=== PATIENT | female | born 1950 | race Caucasian/White ===

== ENCOUNTER → 2016-09-20 | Outpatient (CLI) | payer OTHER ==
[~2016-09-20] MED LIST: LIDOCAINE 1% 30 ML SDV ONE; NA BICARBONATE 50 MEQ/50 ML VIAL ONE
[2016-09-20 09:10] LABS: INR 0.99 (0.83-1.16)
[2016-09-20 11:19] LABS: CSF APPEARANCE CLEAR (CLEAR); CSF COLOR COLORLESS (COLORLESS); CSF SUPERNATANT COLORLESS (COLORLESS); WBC, CSF 2 /mm3 (0-5)
[2016-09-21 13:56] LABS: VDRL CSF Negative (Negative)
[2016-09-23 13:41] LABS: ALBUMIN CSF 25.2 mg/dL (<=27.0); ALBUMIN SERUM 4270 mg/dL; CSF IGG INDEX 0.54 (<=0.85); IGG CSF 3.2 mg/dL (<=8.1); IGG SERUM 1040 mg/dL (767 - 1590); IGG/ALBUMIN CSF 0.13 (<=0.21); IGG/ALBUMIN SERUM 0.24 (<=0.40); INTERPRETATION 0 bands (<4); OLIGOCLONAL BANDING CSF 1 bands; OLIGOCLONAL BANDING SERUM 1 bands; SYNTHESIS RATE 0.79 mg/24 h (<=12)
== END ==
LOC: FIMAGING 08:31
PROC: 009U3ZX Drainage of Spinal Canal, Percutaneous Approach, Diagnostic (ICD-10-PCS; principal; 2016-09-20)
DX: R51 Headache (principal); H46.9 Unspecified optic neuritis; H54.52 Low vision, left eye, normal vision right eye
CPT/HCPCS: 82784-90; 83916-90; 86592-90; 86618-90

== ENCOUNTER → 2016-09-26 | Outpatient (CLI) | payer OTHER | LOC: BMCIMAGING 08:46 | DX: Z12.31 Encounter for screening mammogram for malignant neoplasm of breast (principal) | CPT/HCPCS: G0202 ==

== ENCOUNTER → 2016-11-01 | Outpatient (CLI) | payer OTHER | LOC: BMCIMAGING 09:53 | PROVIDERS: ATTEND Internal Medicine | DX: Z13.820 Encounter for screening for osteoporosis (principal); M85.80 Other specified disorders of bone density and structure, unspecified site ==

== ENCOUNTER 2016-11-29 03:07 | Emergency (ER) | payer OTHER ==
[2016-11-29 03:20] VITALS: TEMP 98.1
--- NOTE | 2016-11-29 03:20 | EDPHY ---
H & P HPI/ROS: HPI CHIEF COMPLAINT: Stress, anxiety, hypertension HISTORY OF PRESENT ILLNESS: This patient very pleasant 65-year-old female she does have significant past medical history for optic neuritis, she is recovering vision in her left eye, she presents emergency room stating that she has been dealing with a lot of stress and anxiety with her elderly mom who is in hospice care who keeps living past what is expected. She also has upset with hospice care for "aggressively feeding her" this been given her great amount of stress and anxiety. She woke up from a nightmare this evening she decided to take her blood pressure which she does regularly and her blood pressure usually runs 130s/80s however was elevated in 170s/100s. Patient tells me that she denies any chest pain or shortness of breath denies headache. She does feel anxious and feels stress. She denies any new visual disturbance. She denies any history of hypertension or taking blood pressure medication. Past Medical History: Optic neuritis Past Surgical History: No recent surgical history Social History: Denies daily use of drugs alcohol tobacco products Family History: Noncontributory ROS REVIEW OF SYSTEMS: A comprehensive 10 point review of systems is otherwise negative aside from elements mentioned in the history of present illness. Exam Constitutional appears tearful, anxious, triage nursing summary reviewed, vital signs reviewed, awake/alert. Eyes normal conjunctivae and sclera, EOMI, PERRLA. HENT normal inspection, atraumatic, moist mucus membranes, no epistaxis, neck supple/ no meningismus, no raccoon eyes. Respiratory clear to auscultation bilaterally, normal breath sounds, no respiratory distress, no wheezing. Cardiovascular rate normal, regular rhythm, no murmur, no edema, distal pulses normal. Gastrointestinal soft, non-tender, no rebound, no guarding, normal bowel sounds, no distension, no pulsatile mass. Genitourinary no CVA tenderness. Musculoskeletal no midline vertebral tenderness, full range of motion, no calf swelling, no tenderness of extremities, no meningismus, good pulses, neurovascularly intact. Skin pink, warm, & dry, no rash, skin atraumatic. Neurologic awake, alert and oriented x 3, AAOx3, moves all 4 extremities equally, motor intact, sensory intact, CN II-XII intact, normal cerebellar, normal vision, normal speech. Psychiatric flat affect, tearful Heme/Lymph/Immune no lymphadenopathy. Differential Diagnosis: Includes but is not limited to in a particular order, acute anxiety, stress response, hypertensive urgency, asymptomatic hypertension Medical Decision Making: Plan for this patient basic blood work, 1 mg p.o. Ativan to see if this relaxes her her brings down her blood pressure. Re-evaluation: 0506AM: Re-evaluation at this time blood pressure is currently 140s over 80s, she is resting comfortably no chest pain or shortness of breath. She is feeling much better after p.o. Ativan. Anxiety greatly improved. Blood work has been reviewed shows no end-organ damage. Recommend monitoring blood pressure closely for the next 2 weeks daily readings. Her also prescribe her limited supply of Ativan for stress and anxiety at home which I think will benefit her. She does understand return emergency room if she develops chest pain shortness of breath or any questions or concerns. Source: Patient Constitutional: Initial Vital Signs Temperature (C) 36.7 C 11/29/16 03:19 Heart Rate 79 11/29/16 03:19 Respiratory Rate 18 11/29/16 03:19 Blood Pressure 179/96 H 11/29/16 03:19 O2 Sat (%) 98 11/29/16 03:19 O2 Delivery Mode Room Air Allergies/Adverse Reactions: erythromycin base Allergy (Intermediate, Verified 09/16/16 14:45) Abdominal Pain Home Medications: Medication Instructions Recorded B12/Levomefolate Calcium/B-6 DAILY 09/16/16 Fish Oil DAILY 09/16/16 Glucosamine DAILY 09/16/16 Aspirin 81mg (*) 11/29/16 LORazepam [Ativan] 1 mg PO BID #10 tablet 11/29/16 Vitamin A & D 11/29/16 Medical Decision Making - Data Points Laboratory Results: Laboratory Results 11/29/16 03:43 11/29/16 03:43 11/29/16 11/29/16 03:43 03:43 WBC 3.12 10^3/uL L 10^3/uL (3.80-9.50) RBC 3.90 10^6/uL L 10^6/uL (4.18-5.33) Hgb 13.2 g/dL g/dL (12.6-16.3) Hct 37.5 % L % (38.0-47.0) MCV 96.2 fL fL (81.5-99.8) MCH 33.8 pg pg (27.9-34.1) MCHC 35.2 g/dL g/dL (32.4-36.7) RDW 13.0 % % (11.5-15.2) Plt Count 222 10^3/uL 10^3/uL (150-400) MPV 9.1 fL fL (8.7-11.7) Neut % (Auto) 53.9 % % (39.3-74.2) Lymph % (Auto) 33.3 % % (15.0-45.0) Donley % (Auto) 9.3 % % (4.5-13.0) Eos % (Auto) 1.9 % % (0.6-7.6) Baso % (Auto) 1.6 % % (0.3-1.7) Nucleat RBC Rel Count 0.0 % % (0.0-0.2) Absolute Neuts (auto) 1.68 10^3/uL L 10^3/uL (1.70-6.50) Absolute Lymphs (auto) 1.04 10^3/uL 10^3/uL (1.00-3.00) Absolute Monos (auto) 0.29 10^3/uL L 10^3/uL (0.30-0.80) Absolute Eos (auto) 0.06 10^3/uL 10^3/uL (0.03-0.40) Absolute Basos (auto) 0.05 10^3/uL 10^3/uL (0.02-0.10) Absolute Nucleated RBC 0.00 10^3/uL 10^3/uL (0-0.01) Immature Gran % 0.0 % % (0.0-1.1) Immature Gran # 0.00 10^3/uL 10^3/uL (0.00-0.10) Sodium 139 mEq/L mEq/L (134-144) Potassium 3.9 mEq/L mEq/L (3.5-5.2) Chloride 106 mEq/L mEq/L (97-110) Carbon Dioxide 23 mEq/l mEq/l (22-31) Anion Gap 10 mEq/L mEq/L (8-16) BUN 10 mg/dL mg/dL (7-23) Creatinine 0.6 mg/dL mg/dL (0.6-1.0) Estimated GFR > 60 Glucose 85 mg/dL mg/dL (70-100) Calcium 9.3 mg/dL mg/dL (8.5-10.4) Medications Given: Discontinued Medications Lorazepam (Ativan) 1 mg PO ONCE ONE Stop: 11/29/16 03:34 Last Admin: 11/29/16 03:43 Dose: 1 mg Departure - Departure Disposition: Home, Routine, Self-Care Clinical Impression: Anxiety Condition: Good Instructions: Anxiety (ED) Additional Instructions: 1. Return emergency room immediately if he develops any further worsening symptoms. 2. I have given you a limited supply of Ativan for acute anxiety. 3. Monitor blood pressure closely over the next 2 weeks. Try to take her blood pressure the same time every day. Record it. Referrals: Lucina Yanez MD [Primary Care Provider] - As per Instructions Prescriptions: LORazepam [Ativan] 1 mg PO BID #10 tablet
[2016-11-29] MEDS ORDERED: LORazepam 1 MG TAB PO ONE (03:33)
[2016-11-29 04:00] LABS: ADD DIFF? NO; ADD MORPH? NO; ADD SCAN? NO; ATYPICAL LYMPHOCYTE FLAG 20 (0-99); FRAGMENT RBC FLAG 0 (0-99); HEMATOCRIT 37.5 % (38.0-47.0); HEMOGLOBIN 13.2 g/dL (12.6-16.3); LEFT SHIFT FLG 0 (0-99); LIPEMIA HEMOLYSIS FLAG 90 (0-99); MEAN CELL HEMOGLOBIN 33.8 pg (27.9-34.1); MEAN CELL HEMOGLOBIN CONCENTR. 35.2 g/dL (32.4-36.7); MEAN CELL VOLUME 96.2 fL (81.5-99.8); MEAN PLATELET VOLUME 9.1 fL (8.7-11.7); PLATELET CLUMPS FLAG 0 (0-99); PLATELET COUNT 222 10^3/uL (150-400)
[2016-11-29 04:08] LABS: ANION GAP 10 mEq/L (8-16); CALCIUM 9.3 mg/dL (8.5-10.4); CARBON DIOXIDE 23 mEq/l (22-31); CHLORIDE 106 mEq/L (97-110); CREATININE 0.6 mg/dL (0.6-1.0); GLOMERULAR FILTRATION RATE > 60; GLUCOSE 85 mg/dL (70-100); POTASSIUM 3.9 mEq/L (3.5-5.2); SODIUM 139 mEq/L (134-144)
[2016-11-29 04:53] VITALS: PULSE 63; O2SAT 96
[2016-11-29 05:16] VITALS: BP 140/97; RESP 15
== END 2016-11-29 05:15 | disposition home or self-care (01) ==
DX: F41.9 Anxiety disorder, unspecified (principal); Z79.82 Long term (current) use of aspirin

== ENCOUNTER → 2017-01-14 | Outpatient (CLI) | payer OTHER | LOC: FCPNEURO 23:18 | PROVIDERS: ATTEND Psychiatry & Neurology Sleep Medicine | DX: G47.33 Obstructive sleep apnea (adult) (pediatric) (principal) ==

== ENCOUNTER → 2017-09-29 | Outpatient (CLI) | payer OTHER | LOC: BMCIMAGING 08:20 | PROVIDERS: ATTEND Internal Medicine | DX: Z12.31 Encounter for screening mammogram for malignant neoplasm of breast (principal) ==

== ENCOUNTER 2018-04-18 03:53 | Emergency (ER) | payer OTHER ==
[2018-04-18 04:00] VITALS: BP 181/91
[2018-04-18] MEDS ORDERED: KETOROLAC 15 MG/1 ML SDV IVP ONE (04:09)
[2018-04-18] MEDS ORDERED: ONDANSETRON 4 MG/2 ML VIAL IVP ONE (04:09)
--- NOTE | 2018-04-18 04:10 | EDPHY ---
H & P Stated Complaint: left hip pain Time Seen by Provider: 04/18/18 04:01 HPI/ROS: Chief Complaint: Left hip pain HPI: 67-year-old woman began having left hip pain yesterday during the course today. Patient states that she moved a heavy potted plant. She also was lifting and moving some furniture for carpet cleaning. As the day went on she developed pain in her left hip. She did not fall. She did not have any traumatic injuries. She is not recall a sudden onset of back pain.. No numbness or weakness. No difficulty urinating. No incontinence of bowel or bladder. She does not have a history of similar pain in the past. She did take some ibuprofen and some Tylenol without significant relief. No fevers or chills. No urinary urgency or frequency. Pain is described in her left posterior hip and buttocks in wrapping around to the front of her left thigh ROS: 10 systems were reviewed and were negative except those elements noted in the HPI. PMH: Optic neuritis Social History: No smoking, no alcohol, no recreational drug use Family History: non-contributory Physical Exam: Gen: Awake, Alert, No Distress HEENT: Nose: no rhinorrhea Eyes: PERRLA, EOMI Mouth: Moist mucosa Neck: Supple, no JVD Chest: nontender, lungs clear to auscultation Heart: S1, S2 normal, no murmur Abd: Soft, non-tender, no guarding Back: no CVA tenderness, no midline tenderness Ext: no edema, non-tender, she has full range of motion of her left hip without any pain or discomfort. Skin: no rash Neuro: CN II-XII intact, Sensation grossly intact, Strength 5/5 in bilateral upper and lower extremities, she is 5 of 5 flexion and extension strength of her proximal and distal muscle groups in bilateral lower extremities. She is normal plantar and dorsiflexion. 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 - Social History Smoking Status: Never smoked Constitutional: Initial Vital Signs Temperature (C) 36.8 C 04/18/18 03:55 Heart Rate 72 04/18/18 03:55 Respiratory Rate 16 04/18/18 03:55 Blood Pressure 181/91 H 04/18/18 03:55 O2 Sat (%) 100 04/18/18 03:55 O2 Delivery Mode Room Air Allergies/Adverse Reactions: erythromycin base Allergy (Intermediate, Verified 04/18/18 03:57) Abdominal Pain Home Medications: Medication Instructions Recorded B12/Levomefolate Calcium/B-6 DAILY 09/16/16 Fish Oil DAILY 09/16/16 Glucosamine DAILY 09/16/16 Aspirin 81mg (*) 11/29/16 LORazepam [Ativan] 1 mg PO BID #10 tablet 11/29/16 Vitamin A & D 11/29/16 Are-2 04/18/18 Astaxanthin 04/18/18 Upper Sorbian Herbs 04/18/18 Hydrocodone/Acetaminophen 1 - 2 each PO Q4-6PRN PRN #10 04/18/18 [Hydrocodon-Acetaminophen 5-325] tablet Medical Decision Making ED Course/Re-evaluation: 67-year-old woman with left sciatic distribution back pain. She is complaining of hip pain but she has no hip tenderness seizures she has full range of motion without any problems. She is completely neurologically intact. Will perform L- spine x-rays, urinalysis and blood work. IV analgesia and reassess. - Data Points Medications Given: Discontinued Medications Ketorolac Tromethamine (Toradol) 15 mg IVP EDNOW ONE Stop: 04/18/18 04:10 Last Admin: 04/18/18 04:34 Dose: 15 mg Morphine Sulfate (Morphine) 4 mg IVP ONCE ONE Stop: 04/18/18 04:10 Last Admin: 04/18/18 04:35 Dose: 4 mg Ondansetron HCl (Zofran) 4 mg IVP EDNOW ONE Stop: 04/18/18 04:10 Last Admin: 04/18/18 04:34 Dose: 4 mg Departure - Departure Disposition: Home, Routine, Self-Care Clinical Impression: Sciatica Condition: Good Instructions: Sciatica (ED) Additional Instructions: Take ibuprofen, 600 mg every 8 hr. You may alternate with acetaminophen, 1000 mg every 8 hr. For worse pain you may take hydrocodone with acetaminophen in place of the over- the-counter acetaminophen. Follow up with spine doctor in 3-4 days for further evaluation. Return emergency department for uncontrolled pain, numbness, weakness, difficulty walking, difficulty controlling your urine, or any other concerns. Referrals: Lucina Yanez MD [Primary Care Provider] - As per Instructions Jai Najera MD [Medical Doctor] - As per Instructions Prescriptions: Hydrocodone/Acetaminophen [Hydrocodon-Acetaminophen 5-325] 1 - 2 each PO Q4- 6PRN PRN #10 tablet PRN Reason: Pain, Severe
[2018-04-18 04:44] LABS: PLATELET COUNT 234 10^3/uL (150-400)
[2018-04-18] MEDS ORDERED: NS 1,000 ML IV ONE (04:57)
== END 2018-04-18 06:11 | disposition home or self-care (01) ==
DX: M25.552 Pain in left hip (principal); M41.86 Other forms of scoliosis, lumbar region; H46.8 Other optic neuritis; E86.9 Volume depletion, unspecified
CPT/HCPCS: 72100; 96361; 96374; 96375; 99284; J1885; J2270; J2405

== ENCOUNTER → 2018-10-02 | Outpatient (CLI) | payer OTHER | LOC: BMCIMAGING 07:53 | PROVIDERS: ATTEND Internal Medicine | DX: Z12.31 Encounter for screening mammogram for malignant neoplasm of breast (principal) ==

== ENCOUNTER → 2018-10-15 | Outpatient (CLI) | payer OTHER | LOC: BMCIMAGING 11:16 | PROVIDERS: ATTEND Internal Medicine | DX: R92.8 Other abnormal and inconclusive findings on diagnostic imaging of breast (principal) ==